=== PATIENT | female | born 1955 | race Caucasian/White ===

== ENCOUNTER 2016-11-07 09:34 | Emergency (ER) | payer BC ==
[2016-11-07 09:51] VITALS: BP 155/98
[2016-11-07] MEDS ORDERED: Sodium Chloride 0.9% 10 ML Syringe FLUSH PRN (10:57)
[2016-11-07] MEDS ORDERED: diphenhydrAMINE 50 MG/ML SDV IVPUSH ONE (11:00)
[2016-11-07] MEDS ORDERED: Metoclopramide 10 MG/2 ML SDV IVPUSH ONE (11:00)
--- NOTE | 2016-11-07 11:23 | CT ---
Head CT Technique: Multiple axial sections through the brain were obtained. Intravenous contrast was not utilized. Comparison: Previous head CT exam of 08/08/15. Findings: Ventricles along with basal cisterns and sulci over convexities are within normal limits for the patient's age. No abnormal parenchymal densities are seen. No evidence of intracranial hemorrhage. No midline shift or mass effect is seen. Bone window settings were reviewed which shows no discrete calvarial abnormality. Visualized sinuses are clear. Impression: 1. No acute intracranial abnormality is identified on noncontrast head CT study. Diagnostic code #1
[2016-11-07] MEDS ORDERED: Ketorolac 30 MG/ML SDV IVPUSH ONE (11:26)
--- NOTE | 2016-11-07 11:28 | CT ---
CT cervical spine Technique: Multiple axial sections were obtained from above C1 inferiorly to the mid T2 level. Reconstructed sagittal and coronal images were reviewed. Comparison: No previous CT cervical spine exam, previous MRI cervical spine study of 04/03/12. Findings: Mastoid sinuses and middle ear cavities appear clear as seen. Posterior skull base is intact. Fusion is identified at C5-C6 and C6-C7 with anterior plate and screws being seen. Mild disc space narrowing noted at C4-C5 with anterior osteophytes. Mild disc space narrowing is noted at C7-T1. Mild degenerative change is seen within the apophyseal joints most prominent at C7-T1 on the left side. Minimal spondylolisthesis is noted at C7-T1 which is felt to be due to degenerative apophyseal change. Ligamentum nuchal calcification is seen. Vertebral bodies and posterior arches are intact. No fracture is seen. No bony central or bony neural foraminal stenosis is seen. Impression: 1. Previous surgery. Degenerative change as noted above. No acute fracture or other acute abnormality is appreciated. Diagnostic code #2
[2016-11-07] MEDS ORDERED: Haloperidol Lactate 5 MG/ML SDV IVPUSH ONE (12:13)
--- NOTE | 2016-11-07 12:56 | EDM.PDOC ---
ED HPI GENERAL MEDICAL PROBLEM - General Chief Complaint: Lower Extremity Injury/Pain Stated Complaint: L HIP PAIN/HEAD PAIN Time Seen by Provider: 11/07/16 10:45 Source of Information: Reports: Patient History Limitations: Reports: No Limitations - History of Present Illness INITIAL COMMENTS - FREE TEXT/NARRATIVE: 61 year old female presents for evaluation and treatment of a headache, left leg pain and dizziness. Reports the headache started 4 days ago. Reports the headache is a 10/10 and is located across the front of her head. Patient reports one week ago she was getting up to go to the bathroom in her camper. She fell backwards and hit her head on the ground. Unsure exactly how she fell. Unsure if she lost consciousness. Reports associated neck pain, dizziness, nausea and photophobia. No loss of consciousness since the accident. No treatments prior to arrival. Patient has a history of migraines. Unsure if this is similar past migraines. Previously on imitrex for migraines but did not get much relief. Patient reports when she gets migraines this severe she often requires Dilaudid for pain control. Patient also reports pain to the anterior lateral proximal thigh. Difficulty walking due to pain. No numbness or tingling. Patient initially reported the pain began within the last week. Review of her chart shows she has had problems with back pain in the past. With further questioning, Patient reports the leg pain has been present for some time. She is concerned she has sciatica. Duration: Day(s): (4) Location: Reports: Head, Lower Extremity, Left Left Hip Pain Score (Numeric/FACES): 9 - Related Data Allergies Allergy/AdvReac Type Severity Reaction Status Date / Time No Known Allergies Allergy Verified 11/07/16 09:46 Home Meds: Home Meds Lisinopril 10 mg PO DAILY 12/23/13 [History] Sertraline [Zoloft] 50 mg PO DAILY 12/23/13 [History] Estrogen,Xiomara/Me-Testosterone [Estrogen-Methyltestosterone Tb] 1 ea PO DAILY [History] Past Medical History Musculoskeletal History: Reports: Other (See Below) Other Musculoskeletal History: neck surgery Neurological History: Reports: Migraines Psychiatric History: Reports: Anxiety, Depression - Infectious Disease History Infectious Disease History: Reports: None - Past Surgical History GI Surgical History: Reports: Appendectomy Female Surgical History: Reports: Hysterectomy Musculoskeletal Surgical History: Reports: Shoulder Surgery Social & Family History - Tobacco Use Smoking Status *Q: Never Smoker Second Hand Smoke Exposure: No - Caffeine Use Caffeine Use: Reports: Coffee - Recreational Drug Use Recreational Drug Use: No Review of Systems - Review of Systems Review Of Systems: See Below Constitutional: Reports: Other (reports photophobia) Ears: Reports: Dizziness GI/Abdominal: Reports: Nausea. Denies: Vomiting Genitourinary: Reports: No Symptoms. Denies: Dysuria Musculoskeletal: Reports: Neck Pain, Leg Pain (left proximal lateral thigh) Neurological: Reports: Dizziness, Headache, Difficulty Walking. Denies: Numbness, Tingling ED EXAM, GENERAL - Physical Exam Exam: See Below Exam Limited By: No Limitations General Appearance: WD/WN, Moderate Distress (patient appears to be dramatizing symptoms) Eye Exam: Bilateral Eye: EOMI, Normal Inspection, PERRL Ears: Normal External Exam Nose: Normal Inspection Throat/Mouth: Normal Inspection, Normal Lips, Normal Gums, Normal Oropharynx, No Airway Compromise Head: Atraumatic, Normocephalic Neck: Normal Inspection, Supple Respiratory/Chest: No Respiratory Distress, Lungs Clear, Normal Breath Sounds Cardiovascular: Normal Peripheral Pulses, Regular Rate, Rhythm, No Murmur Peripheral Pulses: 2+: Radial (L), Radial (R), Posterior Tibial (L), Posterior Tibial (R), Dorsalis Pedis (L), Dorsalis Pedis (R) Back Exam: Normal Inspection Extremities: Normal Inspection, Normal Capillary Refill Neurological: Alert, Oriented, Normal Cognition, Other (negative straight leg raise bilterally) Psychiatric: Normal Affect, Normal Mood Skin Exam: Warm, Dry, Normal Color. No: Ecchymosis, Erythema, Wound/Incision Course - Vital Signs Last Recorded V/S: Last Vital Signs Temp 36.2 C 11/07/16 09:50 Pulse 103 H 11/07/16 09:50 Resp 12 11/07/16 09:50 BP 155/98 H 11/07/16 09:50 Pulse Ox 100 11/07/16 09:50 - Orders/Labs/Meds Labs: Laboratory Tests 11/07/16 11/07/16 11/07/16 Range/Units 11:25 11:35 11:35 WBC 6.92 (3.98-10.04) K/mm3 RBC 4.49 (3.98-5.22) M/mm3 Hgb 14.8 (11.2-15.7) gm/L Hct 44.8 (34.1-44.9) % MCV 99.8 H (79.4-94.8) fl MCH 33.0 H (25.6-32.2) pg MCHC 33.0 (32.2-35.5) g/dl RDW Std Deviation 44.3 (36.4-46.3) fL Plt Count 264 (182-369) K/mm3 MPV 8.8 L (9.4-12.3) fl Neut % (Auto) 71.4 H (34.0-71.1) % Lymph % (Auto) 18.2 L (19.3-51.7) % [place] % (Auto) 6.6 (4.7-12.5) % Eos % (Auto) 3.0 (0.7-5.8) Baso % (Auto) 0.7 (0.1-1.2) % Neut # (Auto) 4.93 (1.56-6.13) K/mm3 Lymph # (Auto) 1.26 (1.18-3.74) K/mm3 [place] # (Auto) 0.46 H (0.24-0.36) K/mm3 Eos # (Auto) 0.21 (0.04-0.36) K/mm3 Baso # (Auto) 0.05 (0.01-0.08) K/mm3 Sodium 138 (136-145) mEq/L Potassium 4.4 (3.5-5.1) mEq/L Chloride 101 (98-107) mEq/L Carbon Dioxide 30 (21-32) mEq/L Anion Gap 11.4 (5-15) BUN 15 (7-18) mg/dL Creatinine 1.1 H (0.55-1.02) mg/dL Est Cr Clr Drug Dosing 51.55 mL/min Estimated GFR (MDRD) 51 (>60) mL/min BUN/Creatinine Ratio 13.6 L (14-18) Glucose 105 (74-106) mg/dL Calcium 9.5 (8.5-10.1) mg/dL Total Bilirubin 0.5 (0.2-1.0) mg/dL AST 21 (15-37) U/L ALT 35 (14-59) U/L Alkaline Phosphatase 92 (46-116) U/L Total Protein 8.3 H (6.4-8.2) g/dl Albumin 4.3 (3.4-5.0) g/dl Globulin 4.0 gm/dL Albumin/Globulin Ratio 1.1 (1-2) Urine Color Yellow (Yellow) Urine Appearance Slt cloudy H (Clear) Urine pH 6.0 (5.0-8.0) Ur Specific [place] > or = 1.030 (1.005-1.030) Urine Protein Negative (Negative) Urine Glucose (UA) Negative (Negative) Urine Ketones Negative (Negative) Urine Occult Blood Trace-intact H (Negative) Urine Nitrite Negative (Negative) Urine Bilirubin Negative (Negative) Urine Urobilinogen 0.2 (0.2-1.0) Ur Leukocyte Esterase 1+ H (Negative) Urine RBC 5-10 H (0-5) /hpf Urine WBC 5-10 H (0-5) /hpf Ur Epithelial Cells 20-30 H (0-5) /hpf Ur Squamous Epith Cells 20-30 H (0-5) /hpf Urine Bacteria Moderate H (FEW) /hpf Urine Mucus Few (FEW) /hpf Meds: Medications Discontinued Medications Generic Name Dose Route Start Last Admin Trade Name Monserrat PRN Reason Stop Dose Admin Dexamethasone 4 mg 11/07/16 13:53 11/07/16 14:29 Dexamethasone IVPUSH 11/07/16 13:54 4 mg ONETIME ONE Administration Dexamethasone Confirm 11/07/16 14:25 Dexamethasone Administered 11/07/16 14:26 Dose 4 mg .ROUTE .STK-MED ONE Diphenhydramine HCl 50 mg 11/07/16 11:00 11/07/16 11:33 Benadryl IVPUSH 11/07/16 11:01 50 mg ONETIME ONE Administration Haloperidol Lactate 5 mg 11/07/16 12:13 11/07/16 12:22 Haldol IVPUSH 11/07/16 12:14 5 mg ONETIME ONE Administration Ketorolac Tromethamine 30 mg 11/07/16 11:26 11/07/16 11:37 Toradol IVPUSH 11/07/16 11:27 30 mg ONETIME ONE Administration Metoclopramide HCl 10 mg 11/07/16 11:00 11/07/16 11:29 Reglan IVPUSH 11/07/16 11:01 10 mg ONETIME ONE Administration Sodium Chloride 10 ml 11/07/16 10:57 11/07/16 11:28 Saline Flush FLUSH 10 ml ASDIRECTED PRN Administration Keep Vein Open - Radiology Interpretation Free Text/Narrative:: CT of the head without contrast impression per Dr. Ludwig 1. No acute intracranial abnormality is identified on noncontrast head CT. Cervical spine CT without contrast impression per Dr. Vail 1. Previous surgery. Degenerative changes noted. No acute fracture or other acute abnormalities appreciated. left hip with pelvis impression per Dr. Ludwig: 1. mild joint space narrowing within the both hips and right sacroiliac joint. 2. Nothing acute is identified on AP pelvis or on two view left hip exam. left femur xray shows no acute fracture or dislocations. - Re-Assessments/Exams Free Text/Narrative Re-Assessment/Exam: 11/07/16 11:46 I felt that the patient was dramatizing her symptoms. She asked for Dilaudid for pain. I am suspicious for drug seeking activity. Patient was searched on the [place] prescription drug registry. She has received 15 different prescriptions for controlled substances from 3 different prescribers within the last year for controlled substances. Most recently she received [place] 5-325 written on 08-28-16 #60. I contacted [facility] and was able to speak with the patient's primary care provider, Jocelyn Woods. She informed me that the patient came to her on [place] for low back pain. She has been physical therapy and has had an unremarkable MRI. Jocelyn states she will no longer prescribe her [place] and she was instructed to get into pain management. It does not sound that she has done this. Jocelyn advised against giving her narcotic pain medication. 11/07/16 12:[address] returned negative, toradol given for pain. Patient reports pain is unchanged. Haldol ordered following headache protocol. 11/07/16 14:19 Labs returned wbc is 6.92, hgb is 14.8 and plts are 264 sodium is 138, potassium is 4.4 and chloride is 101, anion gap is 11.4. gluclose is 105. creatinine is 1.1 Pain now a 11/06. Dexamethasone ordered for pain, following headache protocol. 11/07/16 15:28 At this point the patient feels greatly improved. We will discharge her home. Discharge instructions as documented. UA returned with trace blood, moderae bacteria and 1+ leuks. Patient has no urinary symptoms. Urine sent for culture to confirm. No treatment to be started today. Departure - Departure Time of Disposition: 15:29 Disposition: Home, Self-Care 01 Condition: Good Clinical Impression: Migraine - Discharge Information Instructions: Migraine Headache, [id number] Referrals: Jocelyn Woods PA-C [Primary Care Provider] - Forms: ED Department Discharge Additional Instructions: Go home and rest in a dark quiet room. [id number] Tylenol or Motrin as needed for pain relief. Follow-up with your primary care provider this week or next week if your symptoms do not improve. may use ice or moist heat to the sore areas for additional pain relief. May also try topical products such as icy hot or BenGay for additional pain relief. Please return to the ER if your symptoms change or worsen.
[2016-11-07] MEDS ORDERED: Dexamethasone 4 MG/ML SDV IVPUSH ONE (13:53)
[2016-11-07] MEDS ORDERED: Dexamethasone 4 MG/ML SDV ONE (14:25)
--- NOTE | 2016-11-07 14:29 | CR ---
Pelvis and left hip: AP view of the pelvis was obtained as well as AP and frog-leg lateral views of the left hip. Mild joint space narrowing seen within the both hips. Right sacroiliac joint is mildly narrowed. Left sacroiliac joint is unremarkable. No fracture or other abnormality is seen. Impression: 1. Mild joint space narrowing within the both hips and right sacroiliac joint. 2. Nothing acute is identified on AP pelvis or on two-view left hip exam. Diagnostic code #2
--- NOTE | 2016-11-08 09:41 | CR ---
Left femur: AP and lateral views of the left femur were obtained. Comparison: No previous femur exam. Mild joint space narrowing is seen superiorly within the left hip as well as joint space narrowing medially within the left knee. No fracture or other bony abnormality is seen. Impression: 1. Incidental degenerative change. 2. Nothing acute is seen on left femur study. Diagnostic code #1
== END 2016-11-07 15:35 | disposition home or self-care (01) ==
LOC: JD.ED 09:34 → JD.MS 13:29 → UNDOADMIN 13:29 → JD.ED 15:35
DX: G43.909 Migraine, unspecified, not intractable, without status migrainosus (principal); F41.9 Anxiety disorder, unspecified; F32.9 Major depressive disorder, single episode, unspecified; Z90.49 Acquired absence of other specified parts of digestive tract; Z90.710 Acquired absence of both cervix and uterus
CPT/HCPCS: 36415; 70450; 72125; 73502; 73552; 80053; 81001; 85025; 87086; 96374; 96375; 99285; J1100; J1200; J1630; J1885; J2765; J7050; 99283

== ENCOUNTER 2017-12-20 05:57 | Emergency (ER) | payer BC ==
[2017-12-20] MEDS ORDERED: Acetaminophen/HYDROcodone 325-5 MG Tab PO ONE (06:24)
[2017-12-20] MEDS ORDERED: Orphenadrine 100 MG Tab.ER PO STA (06:24)
--- NOTE | 2017-12-20 06:37 | EDM.PDOC ---
Addendum entered and electronically signed by Isauro Walker MD 12/20/17 11:57 : The patient's had concerns over the prescription. The patient has a history of addiction issues. This was years ago but she has pain now and tramadol does not help. Her will monitor the meds. Original Note: <Isauro Walker - Last Filed: 12/20/17 11:16> ED HPI GENERAL MEDICAL PROBLEM - General Chief Complaint: Chest Pain Stated Complaint: CHEST PAIN Time Seen by Provider: 12/20/17 06:10 - Related Data Allergies Allergy/AdvReac Type Severity Reaction Status Date / Time No Known Allergies Allergy Verified 12/20/17 06:01 Home Meds: Home Meds Sertraline [Zoloft] 100 mg PO DAILY 12/23/13 [History] Estrogen,Xiomara/Me-Testosterone [Estrogen-Methyltestosterone Tb] 1 ea PO DAILY [History] Mv,Iron,Min/Folic Acid/Biotin [Hair, Skin and Nails Softgel] 2 cap PO DAILY [History] Naproxen Sodium [Aleve] 2 tab PO Q8H PRN 12/20/17 [History] atorvaSTATin [Lipitor] 20 mg PO DAILY 12/20/17 [History] oxyCODONE HCl/Acetaminophen [Percocet 5-325 mg Tablet] 1 - 2 each PO Q6HR PRN # 20 tablet 12/20/17 [Rx] Course - Vital Signs Last Recorded V/S: Last Vital Signs Temp 36.6 C 12/20/17 12:03 Pulse 95 12/20/17 12:03 Resp 22 H 12/20/17 12:03 BP 125/95 H 12/20/17 12:03 Pulse Ox 98 12/20/17 12:03 - Orders/Labs/Meds Orders: Active Orders 24 hr Category Date Time Status EKG Documentation Completion [RC] STAT Care 12/20/17 06:23 Active Labs: Laboratory Tests 12/20/17 12/20/17 12/20/17 Range/Units 06:09 06:09 06:09 WBC 5.84 (3.98-10.04) K/mm3 RBC 4.37 (3.98-5.22) M/mm3 Hgb 14.5 (11.2-15.7) gm/L Hct 44.0 (34.1-44.9) % MCV 100.7 H (79.4-94.8) fl MCH 33.2 H (25.6-32.2) pg MCHC 33.0 (32.2-35.5) g/dl RDW Std Deviation 42.4 (36.4-46.3) fL Plt Count 296 (182-369) K/mm3 MPV 9.2 L (9.4-12.3) fl Neutrophils % (Manual) 73 H (40-60) % Band Neutrophils % 0 (0-10) % Lymphocytes % (Manual) 18 L (20-40) % Atypical Lymphs % 0 % Monocytes % (Manual) 7 (2-10) % Eosinophils % (Manual) 2 (0.7-5.8) % Basophils % (Manual) 0 L (0.1-1.2) Platelet Estimate Adequate RBC Morph Comment Normal D-Dimer, Quantitative < 0.19 L (0.19-0.50) mg/L Sodium 137 (136-145) mEq/L Potassium 4.2 (3.5-5.1) mEq/L Chloride 102 (98-107) mEq/L Carbon Dioxide 25 (21-32) mEq/L Anion Gap 14.2 (5-15) BUN 11 (7-18) mg/dL Creatinine 1.1 H (0.55-1.02) mg/dL Est Cr Clr Drug Dosing 50.91 mL/min Estimated GFR (MDRD) 51 (>60) mL/min BUN/Creatinine Ratio 10.0 L (14-18) Glucose 92 (74-106) mg/dL Calcium 9.3 (8.5-10.1) mg/dL Total Bilirubin 0.8 (0.2-1.0) mg/dL AST 18 (15-37) U/L ALT 24 (14-59) U/L Alkaline Phosphatase 82 (46-116) U/L Troponin I < 0.017 (0.00-0.056) ng/mL Total Protein 7.6 (6.4-8.2) g/dl Albumin 4.3 (3.4-5.0) g/dl Globulin 3.3 gm/dL Albumin/Globulin Ratio 1.3 (1-2) Lipase (73-393) U/L 12/20/17 12/20/17 Range/Units 06:09 10:45 WBC (3.98-10.04) K/mm3 RBC (3.98-5.22) M/mm3 Hgb (11.2-15.7) gm/L Hct (34.1-44.9) % MCV (79.4-94.8) fl MCH (25.6-32.2) pg MCHC (32.2-35.5) g/dl RDW Std Deviation (36.4-46.3) fL Plt Count (182-369) K/mm3 MPV (9.4-12.3) fl Neutrophils % (Manual) (40-60) % Band Neutrophils % (0-10) % Lymphocytes % (Manual) (20-40) % Atypical Lymphs % % Monocytes % (Manual) (2-10) % Eosinophils % (Manual) (0.7-5.8) % Basophils % (Manual) (0.1-1.2) Platelet Estimate RBC Morph Comment D-Dimer, Quantitative (0.19-0.50) mg/L Sodium (136-145) mEq/L Potassium (3.5-5.1) mEq/L Chloride (98-107) mEq/L Carbon Dioxide (21-32) mEq/L Anion Gap (5-15) BUN (7-18) mg/dL Creatinine (0.55-1.02) mg/dL Est Cr Clr Drug Dosing mL/min Estimated GFR (MDRD) (>60) mL/min BUN/Creatinine Ratio (14-18) Glucose (74-106) mg/dL Calcium (8.5-10.1) mg/dL Total Bilirubin (0.2-1.0) mg/dL AST (15-37) U/L ALT (14-59) U/L Alkaline Phosphatase (46-116) U/L Troponin I < 0.017 (0.00-0.056) ng/mL Total Protein (6.4-8.2) g/dl Albumin (3.4-5.0) g/dl Globulin gm/dL Albumin/Globulin Ratio (1-2) Lipase 137 (73-393) U/L Meds: Medications Discontinued Medications Generic Name Dose Route Start Last Admin Trade Name Freq PRN Reason Stop Dose Admin Hydrocodone Bitart/Acetaminophen 2 tab 12/20/17 06:24 12/20/17 06:31 [place] 325-5 Mg PO 12/20/17 06:25 2 tab ONETIME ONE Administration Diatrizoate Meglum/Diatrizoate Sod 120 ml 12/20/17 08:17 12/20/17 09:23 Gastrografin 37% PO 12/20/17 08:18 90 ml ONETIME ONE Administration Hydromorphone HCl 1 mg 12/20/17 07:51 12/20/17 07:59 Dilaudid IVPUSH 12/20/17 07:52 1 mg ONETIME ONE Administration Hydromorphone HCl 0.5 mg 12/20/17 08:56 12/20/17 09:07 Dilaudid IVPUSH 12/20/17 08:57 0.5 mg ONETIME ONE Administration Hydromorphone HCl 0.5 mg 12/20/17 11:21 12/20/17 11:28 Dilaudid IVPUSH 12/20/17 11:22 0.5 mg ONETIME ONE Administration Sodium Chloride 1,000 mls @ 150 mls/hr 12/20/17 09:00 12/20/17 09:06 Normal Saline IV 150 mls/hr ASDIRECTED MARVA Administration Iopamidol 100 ml 12/20/17 09:12 12/20/17 09:23 Isovue-300 (61%) IVPUSH 12/20/17 09:13 100 ml ONETIME ONE Administration Ondansetron HCl 4 mg 12/20/17 07:51 12/20/17 07:57 Zofran IVPUSH 12/20/17 07:52 4 mg ONETIME ONE Administration Orphenadrine Citrate 100 mg 12/20/17 06:24 12/20/17 06:31 Norflex PO 12/20/17 06:25 100 mg ONETIME STA Administration Sodium Chloride 10 ml 12/20/17 08:17 12/20/17 09:23 Saline Flush FLUSH 10 ml ONETIME PRN Administration IV FLUSH - Re-Assessments/Exams Free Text/Narrative Re-Assessment/Exam: 12/20/17 11:[address] Brown. Her CBC looks good. Her D-dimer was negative. Her creatinine was slightly elevated at 1.1. Her troponin was negative. Her lipase was normal. She had more pain so I ordered dilaudid 1mg IV. I have ordered a CT of her abdomen and pelvis. The CT shows nothing acute. She does have multiple low density splenic lesions are seen which appear to be stable which become isodense to the spleen on delayed images. The patient had CTs in the past that showed these lesions. In [place] a few years ago they did attempt a biopsy. They could not get a good sample. She was referred to a general surgeon and he was going to order a PET scan but her insurance would not cover it. She did not follow up and now she is having more pain. I will have her follow up with Dr Gautam. 12/20/17 11:21 I have also ordered a repeat troponin but I feel the pain is coming more from the left upper quadrant. Departure - Departure Time of Disposition: 11:35 Disposition: Home, Self-Care 01 Condition: Good Clinical Impression: Abdominal pain of unknown cause, Lesion of spleen Chest pain Qualifiers: Chest pain type: unspecified Qualified Code(s): R07.9 - Chest pain, unspecified - Discharge Information *PRESCRIPTION DRUG MONITORING PROGRAM REVIEWED*: No *COPY OF PRESCRIPTION DRUG MONITORING REPORT IN PATIENT RANDAL: No Prescriptions: oxyCODONE HCl/Acetaminophen [Percocet 5-325 mg Tablet] 1 - 2 each PO Q6HR PRN # 20 tablet PRN Reason: Pain Instructions: Abdominal Pain, Adult, [id number], Nonspecific Chest Pain, Easy -to-Read Referrals: Josi Ortiz MD [Physician] - 12/26/17 3:15 pm Matthew Martinez MD [Primary Care Provider] - Forms: ED Department Discharge Additional Instructions: Take the percocet 1 to 2 pills every 6 hours as needed for pain. Follow up with Dr Ortiz at the [facility] on Sunday the at 3:15. Please come early to register. Please return if you are worse. - My Orders Last 24 Hours: My Active Orders 12/20/17 06:23 EKG Documentation Completion [RC] STAT - Assessment/Plan Last 24 Hours: My Active Orders 12/20/17 06:23 EKG Documentation Completion [RC] STAT <Matti Brown - Last Filed: 12/21/17 01:15> ED HPI GENERAL MEDICAL PROBLEM - General Source of Information: Reports: Patient, Family () History Limitations: Reports: No Limitations - History of Present Illness INITIAL COMMENTS - FREE TEXT/NARRATIVE: The patient states that she developed pain to her left breast yesterday morning , 12/19/2017 (around 24 hours ago). The pain is sharp in character. It does not radiate. It is made worse with breathing, but not with body position or arm movement. She has had nausea and emesis. She reports dyspnea. She reports diaphoresis. She states that she feels anxious, and dizzy. She also reports that her left hand is somewhat tingly, but denies discomfort going down her arm, per se. The patient states that she has taken Aleve, without relief. The patient states that she has had similar pain, although not as severe, 4 or more times since October 2016. No prior medical evaluation. The patient's PCP is Dr. Martinez. Left Chest Pain Score (Numeric/FACES): 10 Past Medical History HEENT History: Reports: Impaired Vision Other HEENT History: Wears glasses Cardiovascular History: Reports: High Cholesterol (untreated), Hypertension ( untreated) [employer] History: Reports: Psychiatric History: Reports: Anxiety, Depression - Past Surgical History HEENT Surgical History: Reports: Oral Surgery (wisdom teeth extraction) GI Surgical History: Reports: Appendectomy Female Surgical History: Reports: Hysterectomy, Salpingo-Oophorectomy Neurological Surgical History: Reports: C-Spine (ACDF) Musculoskeletal Surgical History: Reports: Shoulder Surgery (right open rotator cuff repair) Social & Family History - Tobacco Use Smoking Status *Q: Former Smoker Years of Tobacco use: 33 Packs/Tins Daily: 1 Month/Year Tobacco Last Used: Quit 2008 - Caffeine Use Caffeine Use: Reports: Coffee - Alcohol Use Alcohol Use History: Yes Days Per Week of Alcohol Use: 2 Number of Drinks Per Day: 2 Total Drinks Per Week: 4 Alcohol Use Frequency: Socially - Recreational Drug Use Recreational Drug Use: No - Living Situation & Occupation Living situation: Reports: , with Spouse Occupation: Employed ([employer]) ED ROS GENERAL - Review of Systems Review Of Systems: ROS reveals no pertinent complaints other than HPI. ED EXAM, GENERAL - Physical Exam Exam: See Below Exam Limited By: No Limitations General Appearance: Alert, WD/WN, Anxious, Mild Distress (appears uncomfortable) Eye Exam: Bilateral Eye: EOMI, Normal Inspection Ears: Normal External Exam, Hearing Grossly Normal Nose: Normal Inspection, No Blood Throat/Mouth: Normal Inspection, Normal Lips, Normal Voice, No Airway Compromise Head: Atraumatic, Normocephalic Neck: Normal Inspection, Full Range of Motion Respiratory/Chest: No Respiratory Distress, Lungs Clear, Normal Breath Sounds, No Accessory Muscle Use, Other (Reproducible tenderness to palpation of the left breast). No: Decreased Breath Sounds, Crackles, Rhonchi, Wheezing, Pleural Rub, Prolonged Expiration Cardiovascular: Normal Peripheral Pulses, Regular Rate, Rhythm, No Edema, No Gallop, No JVD, No Murmur, No Rub Peripheral Pulses: 4+: Radial (L), Radial (R) GI/Abdominal: Normal Bowel Sounds, Soft, No Organomegaly, No Distention, No Abnormal Bruit, No Mass, Tender (Generalized, non-focal, but palpation of the abdomen increases the left chest pain) (Female) Exam: Deferred Rectal (Female) Exam: Deferred Back Exam: Normal Inspection, Full Range of Motion Extremities: Normal Inspection, Normal Range of Motion, No Pedal Edema, Normal Capillary Refill Neurological: Alert, Oriented, Normal Cognition, No Motor/Sensory Deficits Psychiatric: Anxious Skin Exam: Warm, Dry, Intact, Normal Color, No Rash EKG INTERPRETATION EKG Date: 12/20/17 Time: 06:05 Rhythm: NSR Rate (Beats/Min): 89 [place]: Normal P-Wave: Present QRS: Normal ST-T: Normal QT: Normal Comparison: No Change (10/03/2015) Course - Orders/Labs/Meds Labs: Laboratory Tests 12/20/17 12/20/17 12/20/17 Range/Units 06:09 06:09 06:09 WBC 5.84 (3.98-10.04) K/mm3 RBC 4.37 (3.98-5.22) M/mm3 Hgb 14.5 (11.2-15.7) gm/L Hct 44.0 (34.1-44.9) % MCV 100.7 H (79.4-94.8) fl MCH 33.2 H (25.6-32.2) pg MCHC 33.0 (32.2-35.5) g/dl RDW Std Deviation 42.4 (36.4-46.3) fL Plt Count 296 (182-369) K/mm3 MPV 9.2 L (9.4-12.3) fl Neutrophils % (Manual) 73 H (40-60) % Band Neutrophils % 0 (0-10) % Lymphocytes % (Manual) 18 L (20-40) % Atypical Lymphs % 0 % Monocytes % (Manual) 7 (2-10) % Eosinophils % (Manual) 2 (0.7-5.8) % Basophils % (Manual) 0 L (0.1-1.2) Platelet Estimate Adequate RBC Morph Comment Normal D-Dimer, Quantitative < 0.19 L (0.19-0.50) mg/L Sodium 137 (136-145) mEq/L Potassium 4.2 (3.5-5.1) mEq/L Chloride 102 (98-107) mEq/L Carbon Dioxide 25 (21-32) mEq/L Anion Gap 14.2 (5-15) BUN 11 (7-18) mg/dL Creatinine 1.1 H (0.55-1.02) mg/dL Est Cr Clr Drug Dosing 50.91 mL/min Estimated GFR (MDRD) 51 (>60) mL/min BUN/Creatinine Ratio 10.0 L (14-18) Glucose 92 (74-106) mg/dL Calcium 9.3 (8.5-10.1) mg/dL Total Bilirubin 0.8 (0.2-1.0) mg/dL AST 18 (15-37) U/L ALT 24 (14-59) U/L Alkaline Phosphatase 82 (46-116) U/L Troponin I < 0.017 (0.00-0.056) ng/mL Total Protein 7.6 (6.4-8.2) g/dl Albumin 4.3 (3.4-5.0) g/dl Globulin 3.3 gm/dL Albumin/Globulin Ratio 1.3 (1-2) Lipase (73-393) U/L 12/20/17 12/20/17 Range/Units 06:09 10:45 WBC (3.98-10.04) K/mm3 RBC (3.98-5.22) M/mm3 Hgb (11.2-15.7) gm/L Hct (34.1-44.9) % MCV (79.4-94.8) fl MCH (25.6-32.2) pg MCHC (32.2-35.5) g/dl RDW Std Deviation (36.4-46.3) fL Plt Count (182-369) K/mm3 MPV (9.4-12.3) fl Neutrophils % (Manual) (40-60) % Band Neutrophils % (0-10) % Lymphocytes % (Manual) (20-40) % Atypical Lymphs % % Monocytes % (Manual) (2-10) % Eosinophils % (Manual) (0.7-5.8) % Basophils % (Manual) (0.1-1.2) Platelet Estimate RBC Morph Comment D-Dimer, Quantitative (0.19-0.50) mg/L Sodium (136-145) mEq/L Potassium (3.5-5.1) mEq/L Chloride (98-107) mEq/L Carbon Dioxide (21-32) mEq/L Anion Gap (5-15) BUN (7-18) mg/dL Creatinine (0.55-1.02) mg/dL Est Cr Clr Drug Dosing mL/min Estimated GFR (MDRD) (>60) mL/min BUN/Creatinine Ratio (14-18) Glucose (74-106) mg/dL Calcium (8.5-10.1) mg/dL Total Bilirubin (0.2-1.0) mg/dL AST (15-37) U/L ALT (14-59) U/L Alkaline Phosphatase (46-116) U/L Troponin I < 0.017 (0.00-0.056) ng/mL Total Protein (6.4-8.2) g/dl Albumin (3.4-5.0) g/dl Globulin gm/dL Albumin/Globulin Ratio (1-2) Lipase 137 (73-393) U/L - Re-Assessments/Exams Free Text/Narrative Re-Assessment/Exam: 12/20/17 06:41 The patient's pain is reproducible with palpation of the left side of the chest , indicating a musculoskeletal etiology. Her ECG is unremarkable. I have ordered a chest x-ray and some blood work, to make sure that no other concomitant problem, such as a pneumothorax, pulmonary embolus, or pancreatitis is present. In the meantime, I have ordered 2 tablets of [place] and a tablet of Norflex. 12/20/17 06:46 2-view chest radiograph reviewed. Cardiac silhouette is within normal limits. The pulmonary vascular congestion. No pleural effusions. No focal infiltrate. No pneumothorax. Lower cervical/upper thoracic fusion hardware incidentally noted. Mild scoliosis incidentally noted. Formal read per the Radiologist pending. 12/20/17 07:[address] Walker, and care of the patient turned over to him at this time, for change of shift.
[2017-12-20] MEDS ORDERED: HYDROmorphone 1 MG/ML Syringe IVPUSH ONE (07:51)
[2017-12-20] MEDS ORDERED: Ondansetron 4 MG/2 ML SDV IVPUSH ONE (07:51)
[2017-12-20] MEDS ORDERED: Diatrizoate Meglumine/Diatrizoate Sodium 37% 120 ML Bottle PO ONE (08:17)
[2017-12-20] MEDS ORDERED: Iopamidol 612 MG/ML 150 ML Bottle IVPUSH ONE (08:17)
[2017-12-20] MEDS ORDERED: Sodium Chloride 0.9% 10 ML Syringe FLUSH PRN (08:17)
[2017-12-20] MEDS ORDERED: HYDROmorphone 0.5 MG/0.5 ML SYRINGE IVPUSH ONE ×2 (08:56→11:21)
[2017-12-20] MEDS ORDERED: Sodium Chloride 0.9% 1,000 ML IV SCH (09:00)
[2017-12-20] MEDS ORDERED: Iopamidol 612 MG/ML 100 ML Bottle IVPUSH ONE (09:12)
--- NOTE | 2017-12-20 10:21 | CT ---
CT abdomen and pelvis Technique: Multiple axial sections were obtained from above the dome of the diaphragm inferiorly through the pubic symphysis. Intravenous and oral contrast was utilized. Comparison: Previous CT abdomen and pelvis study of 10/03/15. Findings: Visualized lung bases shows nothing acute. Liver shows no discrete abnormality. Small liver lesion that was seen on prior CT study is not appreciated on current exam. Multiple low density splenic lesions are seen which appear to be stable which become isodense to the spleen on delayed images. Adrenal glands show no nodule. Kidneys show symmetric contrast enhancement. Small low density lesion measuring 9 mm is seen. Several very small cortical lesion seen within the upper pole of the right kidney compatible with additional cysts. Gallbladder contains no calcified gallstones. Pancreas is normal. Aorta shows no aneurysmal dilatation with atherosclerotic change being seen. No retroperitoneal adenopathy or mesenteric abnormalities are seen. Appendix is not visualized. No free fluid or inflammatory change is seen. Bone window settings appear within normal limits for the patient's age. Incidental note of small fat-containing umbilical hernia. Mild increased stool seen within the colon. Impression: 1. Findings which are felt to be incidental as described above. Nothing acute is seen. Diagnostic code #3
[2017-12-20 12:04] VITALS: BP 125/95
--- NOTE | 2017-12-20 12:42 | CR ---
Chest: Two views of the chest were obtained. Comparison: Prior chest x-ray of 10/03/15. Heart size is normal. Mild tortuosity of the thoracic aorta is seen. Prior lower cervical spine surgery is seen. Lungs show no acute parenchymal change. Slight degenerative endplate spurring is noted within the spine. Impression: 1. Nothing acute is seen on two-view chest x-ray. Diagnostic code #2
== END 2017-12-20 12:05 | disposition home or self-care (01) ==
LOC: JD.ED 05:57
DX: D73.89 Other diseases of spleen (principal); R07.9 Chest pain, unspecified; I10 Essential (primary) hypertension; E78.00 Pure hypercholesterolemia, unspecified; F41.9 Anxiety disorder, unspecified; F32.9 Major depressive disorder, single episode, unspecified; Z79.899 Other long term (current) drug therapy; Z87.891 Personal history of nicotine dependence
CPT/HCPCS: 36415; 71046; 74177; 80053; 83690; 84484; 85007; 85027; 85379; 93005; 96361; 96374; 96375; 96376; 99285; A9270; J1170; J2405; J7040; J7050; Q9963; Q9967; 93010; 99284-25

== ENCOUNTER 2019-05-27 10:25 | Emergency (ER) | payer BC ==
[2019-05-27] MEDS ORDERED: Lactated Ringers 1,000 ML IV ONE ×2 (11:13→14:17)
[2019-05-27] MEDS ORDERED: Ondansetron 4 MG/2 ML SDV IVPUSH ONE (11:13)
--- NOTE | 2019-05-27 11:26 | EDM.PDOC ---
ED HPI GENERAL MEDICAL PROBLEM - General Chief Complaint: Abdominal Pain Stated Complaint: ABDOMINAL PAIN/CONSTIPATED X5DAYS Time Seen by Provider: 05/27/19 11:00 - History of Present Illness INITIAL COMMENTS - FREE TEXT/NARRATIVE: 64-year-old female presents to emergency room with abdominal pain. The patient has had severe constipation for the last 5 days she is had 2 tiny very hard BMs over the weekend nothing since then. The patient has chronic constipation with this episode she is tried MiraLAX and stool softeners without any success yet. Patient is developed some nausea and dry heaves. She is not aware of any fevers or chills. Left Abdomen Pain Score (Numeric/FACES): 9 - Related Data Allergies Allergy/AdvReac Type Severity Reaction Status Date / Time No Known Allergies Allergy Verified 05/27/19 10:37 Home Meds: Home Meds Sertraline [Zoloft] 100 mg PO DAILY 12/23/13 [History] Estrogen,Xiomara/Me-Testosterone [Estrogen-Methyltestosterone Tb] 1 ea PO DAILY [History] Mv,Iron,Min/Folic Acid/Biotin [Hair, Skin and Nails Softgel] 2 cap PO DAILY [History] atorvaSTATin [Lipitor] 20 mg PO DAILY 12/20/17 [History] Acetaminophen/HYDROcodone [[place] 325-5 MG] 1 - 2 tab PO Q6H PRN #8 tablet [Rx] Lactulose [Constulose] 20 gm PO Q24H #300 ml 05/27/19 [Rx] Ondansetron [Zofran ODT] 4 mg PO Q6H PRN #8 tab.dis 05/27/19 [Rx] Past Medical History HEENT History: Reports: Impaired Vision Other HEENT History: Wears glasses Cardiovascular History: Reports: High Cholesterol, Hypertension 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: Musculoskeletal History: Reports: Other (See Below) Other Musculoskeletal History: neck surgery Neurological History: Reports: Migraines Psychiatric History: Reports: Anxiety, Depression - Infectious Disease History Infectious Disease History: Reports: None - Past Surgical History HEENT Surgical History: Reports: Oral Surgery GI Surgical History: Reports: Appendectomy Female Surgical History: Reports: Hysterectomy, Salpingo-Oophorectomy Neurological Surgical History: Reports: C-Spine Musculoskeletal Surgical History: Reports: Shoulder Surgery Social & Family History - Family History Family Medical History: Noncontributory - Tobacco Use Smoking Status *Q: Never Smoker - Caffeine Use Caffeine Use: Reports: Coffee - Recreational Drug Use Recreational Drug Use: No - Living Situation & Occupation Living situation: Reports: , with Spouse Occupation: Employed ([employer]) ED ROS GENERAL - Review of Systems Review Of Systems: See Below Constitutional: Reports: No Symptoms HEENT: Reports: No Symptoms Respiratory: Reports: No Symptoms Cardiovascular: Reports: No Symptoms GI/Abdominal: Reports: Abdominal Pain, Constipation, Nausea, Vomiting. Denies: Diarrhea : Reports: No Symptoms Musculoskeletal: Reports: No Symptoms Skin: Reports: No Symptoms ED EXAM, GI/ABD - Physical Exam Exam: See Below Exam Limited By: No Limitations General Appearance: Alert, Mild Distress (From the discomfort and pain) Head: Atraumatic, Normocephalic Neck: Normal Inspection, Supple, Non-Tender, Full Range of Motion Respiratory/Chest: No Respiratory Distress, Lungs Clear, Normal Breath Sounds Cardiovascular: Regular Rate, Rhythm, No Edema, No Murmur GI/Abdominal Exam: Normal Bowel Sounds, Soft, Other (Diffuse discomfort no rigidity rebound or guarding appreciated) Course - Vital Signs Last Recorded V/S: Last Vital Signs Temp 37.1 C 05/27/19 10:32 Pulse 107 H 05/27/19 10:32 Resp 18 05/27/19 10:32 BP 170/128 H 05/27/19 10:32 Pulse Ox 100 05/27/19 10:32 - Orders/Labs/Meds Orders: Active Orders 24 hr Category Date Time Status Enema [RC] ASDIRECTED Care 05/27/19 12:06 Active Abdomen 2V AP Flat Upright [CR] Stat Exams 05/27/19 11:16 Taken Labs: Laboratory Tests 05/27/19 05/27/19 Range/Units 11:30 11:30 WBC 7.37 (3.98-10.04) K/mm3 RBC 4.33 (3.98-5.22) M/mm3 Hgb 14.7 (11.2-15.7) gm/dl Hct 45.5 H (34.1-44.9) % MCV 105.1 H D (79.4-94.8) fl MCH 33.9 H (25.6-32.2) pg MCHC 32.3 (32.2-35.5) g/dl RDW Std Deviation 46.8 H (36.4-46.3) fL Plt Count 334 (182-369) K/mm3 MPV 8.5 L (9.4-12.3) fl Neut % (Auto) 72.0 H (34.0-71.1) % Lymph % (Auto) 19.4 (19.3-51.7) % [place] % (Auto) 6.6 (4.7-12.5) % Eos % (Auto) 1.2 (0.7-5.8) Baso % (Auto) 0.7 (0.1-1.2) % Neut # (Auto) 5.30 (1.56-6.13) K/mm3 Lymph # (Auto) 1.43 (1.18-3.74) K/mm3 [place] # (Auto) 0.49 H (0.24-0.36) K/mm3 Eos # (Auto) 0.09 (0.04-0.36) K/mm3 Baso # (Auto) 0.05 (0.01-0.08) K/mm3 Manual Slide Review Abnormal smear Sodium 139 (136-145) mEq/L Potassium 3.7 (3.5-5.1) mEq/L Chloride 102 (98-107) mEq/L Carbon Dioxide 23 (21-32) mEq/L Anion Gap 17.7 H (5-15) BUN 14 (7-18) mg/dL Creatinine 1.1 H (0.55-1.02) mg/dL Est Cr Clr Drug Dosing 47.72 mL/min Estimated GFR (MDRD) 50 (>60) mL/min BUN/Creatinine Ratio 12.7 L (14-18) Glucose 81 (80-115) mg/dL Calcium 9.5 (8.5-10.1) mg/dL Magnesium 2.0 (1.8-2.4) mg/dl Total Bilirubin 0.7 (0.2-1.0) mg/dL AST 18 (15-37) U/L ALT 21 (14-59) U/L Alkaline Phosphatase 52 (46-116) U/L Total Protein 7.7 (6.4-8.2) g/dl Albumin 4.1 (3.4-5.0) g/dl Globulin 3.6 gm/dL Albumin/Globulin Ratio 1.1 (1-2) Lipase 106 (73-393) U/L Meds: Medications Discontinued Medications Generic Name Dose Route Start Last Admin Trade Name Monserrat PRN Reason Stop Dose Admin Diatrizoate Meglum/Diatrizoate Sod 90 ml 05/27/19 15:11 05/27/19 16:02 Gastrografin 37% PO 05/27/19 15:12 120 ml ONETIME ONE Administration Dicyclomine HCl 20 mg 05/27/19 14:34 05/27/19 14:49 Bentyl PO 05/27/19 14:35 20 mg ONETIME ONE Administration Fentanyl 50 mcg 05/27/19 12:09 05/27/19 12:43 Sublimaze IVPUSH 05/27/19 12:10 50 mcg ONETIME ONE Administration Fentanyl 50 mcg 05/27/19 17:11 05/27/19 17:20 Sublimaze IVPUSH 05/27/19 17:12 50 mcg ONETIME ONE Administration Lactated Ringer's 1,000 mls @ 999 mls/hr 05/27/19 11:13 05/27/19 11:31 Ringers, Lactated IV 05/27/19 12:13 999 mls/hr .BOLUS ONE Administration Lactated Ringer's 1,000 mls @ 999 mls/hr 05/27/19 14:17 05/27/19 14:49 Ringers, Lactated IV 05/27/19 15:17 999 mls/hr .BOLUS ONE Administration Iopamidol 100 ml 05/27/19 15:11 05/27/19 16:02 Isovue-300 (61%) IVPUSH 05/27/19 15:12 100 ml ONETIME ONE Administration Ondansetron HCl 4 mg 05/27/19 11:13 05/27/19 11:31 Zofran IVPUSH 05/27/19 11:14 4 mg ONETIME ONE Administration Sodium Chloride 10 ml 05/27/19 15:11 05/27/19 16:02 Saline Flush FLUSH 05/27/19 15:12 10 ml ONETIME ONE Administration - Re-Assessments/Exams Free Text/Narrative Re-Assessment/Exam: 05/27/19 12:15 Abdominal x-ray shows extensive stool accumulation especially in the lower colon and sigmoid. CBC is nonsuggestive other labs pending we will try a soapsuds enema. 05/27/19 18:56 We attempted an enema she kept it in for quite a long time but did not really have much results with this. We discussed further testing versus discharge with mag citrate and they would like to pursue a CT at this point this was ordered the results of this was fairly unremarkable she is got areas of the bowel with some wall thickening within the colon possibly representing nonspecific colitis the patient has not had any diarrhea so I do not think this really is a good representation of what is going on I discussed this with the patient and her and we think probably the safest option at this point is to try mag citrate started on lactulose. And see how this goes with very close follow-up with her primary provider Departure - Departure Time of Disposition: 18:57 Disposition: Home, Self-Care 01 Clinical Impression: Constipation, Abdominal pain - Discharge Information Prescriptions: Acetaminophen/HYDROcodone [[place] 325-5 MG] 1 - 2 tab PO Q6H PRN #8 tablet PRN Reason: Abdominal Pain Lactulose [Constulose] 20 gm PO Q24H #300 ml Ondansetron [Zofran ODT] 4 mg PO Q6H PRN #8 tab.dis PRN Reason: Nausea/Vomiting Referrals: Matthew Martinez MD [Primary Care Provider] - Forms: ED Department Discharge Additional Instructions: Return to the emergency room with any questions problems or worsening symptoms. Follow-up with your regular provider in 2 days in the clinic. Use the medications as directed. Started on hydrocodone for pain use this only for the next day. You have been given Zofran for nausea and vomiting. And you have been given lactulose for long-term control of your constipation. 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 While at the pharmacy metal pickling equipment operator some magnesium citrate it is [id number] get 2 bottles drink one bottle when you get home for it over ice. Take the second bottle in the morning if you do not get the desired effect from the first bottle. Sepsis Event Note - Evaluation Sepsis Screening Result: No Definite Risk - Focused Exam Vital Signs: Vital Signs Temp Pulse Resp BP Pulse Ox 05/27/19 10:32 37.1 C 107 H 18 170/128 H 100 Date Exam was Performed: 05/27/19 Time Exam was Performed: 18:55 - My Orders Last 24 Hours: My Active Orders 05/27/19 11:16 Abdomen 2V AP Flat Upright [CR] Stat 05/27/19 12:06 Enema [RC] ASDIRECTED - Assessment/Plan Last 24 Hours: My Active Orders 05/27/19 11:16 Abdomen 2V AP Flat Upright [CR] Stat 05/27/19 12:06 Enema [RC] ASDIRECTED
[2019-05-27] MEDS ORDERED: fentaNYL 100 MCG/2 ML SDV IVPUSH ONE ×2 (12:09→17:11)
[2019-05-27] MEDS ORDERED: Dicyclomine 10 MG Cap PO ONE (14:34)
[2019-05-27] MEDS ORDERED: Iopamidol 612 MG/ML 100 ML Bottle IVPUSH ONE (15:11)
[2019-05-27] MEDS ORDERED: Sodium Chloride 0.9% 10 ML Syringe FLUSH ONE (15:11)
[2019-05-27] MEDS ORDERED: Diatrizoate Meglumine/Diatrizoate Sodium 37% 120 ML Bottle PO ONE (15:11)
--- NOTE | 2019-05-27 16:38 | CT ---
CT abdomen and pelvis Technique: Multiple axial sections were obtained from above the dome of the diaphragm inferiorly through the pubic symphysis. Intravenous contrast and oral contrast has been given. Delayed images were also obtained through the abdomen and pelvis. Comparison: Previous CT abdomen and pelvis exam of 12/20/17. Findings: Bowel wall thickening seen within portions of the cecum as well as right colon. Mild bowel wall thickening is seen within portions of the descending colon. Findings are suspicious for a nonspecific colitis. Visualized lung bases show nothing acute. Liver contains no focal abnormality. Multiple low density lesions are seen within the spleen which are fairly stable from previous exam. Uncertain as to etiology. Adrenal glands show no nodule. Kidneys show symmetric contrast enhancement. Left and right kidneys show very minimal low density cortical lesions most likely representing minimal cortical cysts. Pancreas shows no discrete abnormality. Gallbladder contains no calcified gallstones. Aorta shows atherosclerotic change which continues into the iliac vessels. No retroperitoneal adenopathy or mesenteric abnormalities are seen. No pelvic mass or adenopathy is seen. No free fluid or inflammatory change is identified. Appendix is not definitely visualized. Bone window settings were reviewed. No acute osseous finding is appreciated. Impression: 1. Areas of bowel wall thickening within the colon as noted above most likely representing areas of nonspecific colitis. 2. Other findings as noted above believed to be stable from prior CT abdomen and pelvis exam. Nothing acute is appreciated. Diagnostic code #3 This report was dictated in [place] Standard Time
[2019-05-27 20:14] VITALS: BP 160/104; PULSE 99
--- NOTE | 2019-05-28 06:51 | CR ---
Abdomen: Supine and upright views of the abdomen were obtained. Comparison: Prior abdominal x-ray of 06/21/10. Scattered bowel gas appears within normal limits. Gas noted within multiple nondilated small bowel loops as well as within the colon. Bony structures are slightly osteopenic. No free air is seen. No abnormal calcifications or soft tissue abnormality is seen. Impression: 1. Findings as noted above. 2. Nothing acute is appreciated on two-view abdominal x-ray. Diagnostic code #2 Study was dictated in [place] Standard Time
== END 2019-05-27 19:22 | disposition home or self-care (01) ==
LOC: JD.ED 10:25
DX: R10.9 Unspecified abdominal pain (principal); K59.00 Constipation, unspecified; E78.00 Pure hypercholesterolemia, unspecified; I10 Essential (primary) hypertension; F32.9 Major depressive disorder, single episode, unspecified; F41.9 Anxiety disorder, unspecified; Z90.89 Acquired absence of other organs; Z79.899 Other long term (current) drug therapy
CPT/HCPCS: 36415; 74019; 74177; 80053; 83690; 83735; 85025; 96361; 96374; 96375; 96376; 99284; A9270; J2405; J3010; J7120; Q9963; Q9967; 99283

== ENCOUNTER 2020-02-29 11:21 | Emergency (ER) | payer BC ==
[2020-02-29] MEDS ORDERED: Ketorolac 60 MG/2 ML SDV IM ONE (11:54)
[2020-02-29] MEDS ORDERED: Acetaminophen/HYDROcodone 325-5 MG Tab PO ONE (11:54)
--- NOTE | 2020-02-29 12:02 | EDM.PDOC ---
ED HPI GENERAL MEDICAL PROBLEM - General Chief Complaint: Back Pain or Injury Stated Complaint: BACK PAIN Time Seen by Provider: 02/29/20 11:31 Source of Information: Reports: Patient, RN Notes Reviewed - History of Present Illness INITIAL COMMENTS - FREE TEXT/NARRATIVE: 65 yr old female with R low back pain for about 2 wks. Radiates down R leg. Treated with prednisone and tramadol 10 to 14 days ago. The tramadol made her itch so she stopped that. Still having bad discomfort, at rest and with motion. Right Lower Back Pain Score (Numeric/FACES): 10 - Related Data Allergies Allergy/AdvReac Type Severity Reaction Status Date / Time tramadol Allergy Itching Verified 02/29/20 11:39 Home Meds: Home Meds Sertraline [Zoloft] 100 mg PO DAILY 12/23/13 [History] Estrogen,Xiomara/Me-Testosterone [Estrogen-Methyltestosterone Tb] 1 ea PO DAILY 11/07/16 [History] Mv,Iron,Min/Folic Acid/Biotin [Hair, Skin and Nails Softgel] 2 cap PO DAILY 12/20/17 [History] atorvaSTATin [Lipitor] 20 mg PO DAILY 12/20/17 [History] Acetaminophen/HYDROcodone [[place] 325-5 MG] 1 - 2 tab PO Q6H PRN #8 tablet 05/27/19 [Rx] Lactulose [Constulose] 20 gm PO Q24H #300 ml 05/27/19 [Rx] Ondansetron [Zofran ODT] 4 mg PO Q6H PRN #8 tab.dis 05/27/19 [Rx] Acetaminophen/HYDROcodone [[place] 325-5 MG] 1 tab PO Q6H #14 tablet 02/29/20 [Rx] predniSONE [Prednisone] 50 mg PO DAILY #6 tablet 02/29/20 [Rx] Past Medical History HEENT History: Reports: Impaired Vision Other HEENT History: Wears glasses Cardiovascular History: Reports: High Cholesterol, Hypertension Gastrointestinal History: Reports: Chronic Constipation 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: Musculoskeletal History: Reports: Other (See Below) Other Musculoskeletal History: neck surgery Neurological History: Reports: Migraines Psychiatric History: Reports: Anxiety, Depression - Infectious Disease History Infectious Disease History: Reports: None - Past Surgical History HEENT Surgical History: Reports: Oral Surgery GI Surgical History: Reports: Appendectomy Female Surgical History: Reports: Hysterectomy, Salpingo-Oophorectomy Neurological Surgical History: Reports: C-Spine Musculoskeletal Surgical History: Reports: Shoulder Surgery Social & Family History - Family History Family Medical History: Noncontributory - Tobacco Use Tobacco Use Status *Q: Never Tobacco User - Caffeine Use Caffeine Use: Reports: Coffee - Living Situation & Occupation Living situation: Reports: , with Spouse Occupation: Employed ([employer]) ED ROS GENERAL - Review of Systems Review Of Systems: See Below Constitutional: Denies: Fever, Chills HEENT: Reports: No Symptoms Respiratory: Reports: No Symptoms Cardiovascular: Reports: No Symptoms GI/Abdominal: Reports: No Symptoms Musculoskeletal: Reports: Back Pain, Leg Pain Skin: Reports: No Symptoms Neurological: Reports: No Symptoms ED EXAM,LOWER BACK PAIN/INJURY - Physical Exam Exam: See Below General Appearance: Alert, Moderate Distress Head: Atraumatic Neck: Supple Respiratory/Chest: No Respiratory Distress Back Exam: Paraspinal Tenderness (R low back) Extremities: Normal Inspection. No: Leg Pain, Increased Warmth, Redness Neurological: Alert, No Motor/Sensory Deficits, Other (pain with str. leg raising bilat. ) Skin Exam: Warm, Dry, Normal Color, No Rash Course - Vital Signs Last Recorded V/S: Last Vital Signs Temp 99.0 F 02/29/20 11:36 Pulse 90 02/29/20 12:19 Resp 16 02/29/20 12:19 BP 143/80 H 02/29/20 12:19 Pulse Ox 97 02/29/20 12:19 - Orders/Labs/Meds Meds: Medications Discontinued Medications Generic Name Dose Route Start Last Admin Trade Name Monserrat PRN Reason Stop Dose Admin Hydrocodone Bitart/Acetaminophen 1 tab 02/29/20 11:54 02/29/20 12:02 [place] 325-5 Mg PO 02/29/20 11:55 1 tab ONETIME ONE Administration Ketorolac Tromethamine 60 mg 02/29/20 11:54 02/29/20 12:01 Toradol IM 02/29/20 11:55 60 mg ONETIME ONE Administration Departure - Departure Time of Disposition: 11:59 Disposition: Home, Self-Care 01 Condition: Fair Clinical Impression: Back pain Qualifiers: Back pain location: low back pain Chronicity: acute Back pain laterality: right Sciatica presence: with sciatica Sciatica laterality: sciatica of right side Qualified Code(s): M54.41 - Lumbago with sciatica, right side - Discharge Information Prescriptions: Acetaminophen/HYDROcodone [[place] 325-5 MG] 1 tab PO Q6H #14 tablet predniSONE [Prednisone] 50 mg PO DAILY #6 tablet Instructions: Acute Back Pain, Adult Referrals: Matthew Martinez MD [Primary Care Provider] - Forms: ED Department Discharge, ED Return to Work/School Form Additional Instructions: rest back, avoid heavy lifting for now. Prednisone 50 mg daily for 6 days, first dose today. Hydorocodone q 6 hr if needed for severe pain. Prescriptions have been sent to [facility], [place] [facility]. Start Physical therapy at group and therapist of your choice. See your provider later this week for recheck, call for appointment. Sepsis Event Note (ED) - Evaluation Sepsis Screening Result: No Definite Risk - Focused Exam Vital Signs: Vital Signs Temp Pulse Resp BP Pulse Ox 02/29/20 12:19 90 16 143/80 H 97 02/29/20 11:36 99.0 F 104 H 16 168/94 H 99
[2020-02-29 12:20] VITALS: BP 143/80; PULSE 90
== END 2020-02-29 12:20 | disposition home or self-care (01) ==
LOC: JD.ED 11:21
DX: M54.41 Lumbago with sciatica, right side (principal); E78.00 Pure hypercholesterolemia, unspecified; I10 Essential (primary) hypertension; F41.9 Anxiety disorder, unspecified; F32.9 Major depressive disorder, single episode, unspecified; Z88.5 Allergy status to narcotic agent; Z79.899 Other long term (current) drug therapy
CPT/HCPCS: 96374; 99283; A9270; J1885

== ENCOUNTER 2020-04-06 07:09 | Emergency (ER) | payer BC ==
[2020-04-06] MEDS ORDERED: Dexamethasone 10 MG/ML SDV IVPUSH ONE (07:49)
[2020-04-06] MEDS ORDERED: Sodium Chloride 0.9% 10 ML Syringe FLUSH PRN (07:49)
[2020-04-06] MEDS ORDERED: diphenhydrAMINE 50 MG/ML SDV IVPUSH ONE ×2 (07:49→10:15)
[2020-04-06] MEDS ORDERED: Metoclopramide 10 MG/2 ML SDV IVPUSH ONE (07:49)
[2020-04-06] MEDS ORDERED: Sodium Chloride 0.9% 1,000 ML IV SCH (08:00)
--- NOTE | 2020-04-06 08:32 | EDM.PDOC ---
ED HPI GENERAL MEDICAL PROBLEM - General Chief Complaint: Headache Stated Complaint: HEADACHE Time Seen by Provider: 04/06/20 07:32 Source of Information: Reports: Patient, RN Notes Reviewed - History of Present Illness INITIAL COMMENTS - FREE TEXT/NARRATIVE: 65 yr old female comes in with severe Scott. Started about 4 to 5 days ago. Hx of migraines, this is worse than usual. Bilat, throbbing, nausea and vomtiing. Occasional cough, no fever or chills. Tested covid neg. last week. Frontal Headache Pain Score (Numeric/FACES): 10 - Related Data Allergies Allergy/AdvReac Type Severity Reaction Status Date / Time ketorolac [From Toradol] Allergy Hives Verified 04/06/20 07:19 tramadol Allergy Itching Verified 04/06/20 07:19 Home Meds: Home Meds Sertraline [Zoloft] 100 mg PO DAILY 12/23/13 [History] Estrogen,Xiomara/Me-Testosterone [Estrogen-Methyltestosterone Tb] 1 ea PO DAILY 11/07/16 [History] Mv,Iron,Min/Folic Acid/Biotin [Hair, Skin and Nails Softgel] 2 cap PO DAILY 12/20/17 [History] atorvaSTATin [Lipitor] 20 mg PO DAILY 12/20/17 [History] Lactulose [Constulose] 20 gm PO Q24H #300 ml 05/27/19 [Rx] Acetaminophen/Codeine [Tylenol with Codeine No.3 300MG/30MG] 1 tab PO Q6HR PRN #7 tab 04/06/20 [Rx] Losartan/Hydrochlorothiazide [Losartan-HCTZ 50-12.5 MG] 12.5 - 50 mg PO DAILY 04/06/20 [History] Ondansetron [Zofran ODT] 4 mg PO Q8HR PRN #7 tab.dis 04/06/20 [Rx] SUMAtriptan succinate [Imitrex] 100 mg PO ASDIRECTED PRN 04/06/20 [History] Past Medical History HEENT History: Reports: Impaired Vision Other HEENT History: Wears glasses Cardiovascular History: Reports: High Cholesterol, Hypertension Gastrointestinal History: Reports: Chronic Constipation 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: Musculoskeletal History: Reports: Fracture, Other (See Below) Other Musculoskeletal History: neck surgery Neurological History: Reports: Migraines Psychiatric History: Reports: Anxiety, Depression Hematologic History: Reports: Iron Deficiency - Infectious Disease History Infectious Disease History: Reports: Chicken Pox, Influenza, Measles, Mumps - Past Surgical History HEENT Surgical History: Reports: Oral Surgery GI Surgical History: Reports: Appendectomy Female Surgical History: Reports: Hysterectomy, Salpingo-Oophorectomy Neurological Surgical History: Reports: C-Spine Musculoskeletal Surgical History: Reports: ORIF, Shoulder Surgery Other Musculoskeletal Surgeries/Procedures:: right rotator cuff surgery, ORIF R) ankle. Social & Family History - Family History Family Medical History: No Pertinent Family History - Tobacco Use Tobacco Use Status *Q: Never Tobacco User Second Hand Smoke Exposure: No - Caffeine Use Caffeine Use: Reports: Coffee - Recreational Drug Use Recreational Drug Use: No - Living Situation & Occupation Living situation: Reports: , with Spouse Occupation: Employed ([employer]) ED ROS GENERAL - Review of Systems Review Of Systems: See Below Constitutional: Denies: Fever, Chills, Diaphoresis HEENT: Denies: Sinus Problem Respiratory: Reports: Cough. Denies: Shortness of Breath Cardiovascular: Denies: Chest Pain GI/Abdominal: Reports: Nausea, Vomiting. Denies: Abdominal Pain - Physical Exam Exam: See Below Exam Limited By: No Limitations General Appearance: Alert, Moderate Distress Eye Exam: Bilateral Eye: PERRL Head Exam: Atraumatic. No: Facial Swelling Neck: Supple Respiratory/Chest: No Respiratory Distress, Lungs Clear, Normal Breath Sounds Cardiovascular: Regular Rate, Rhythm GI/Abdominal: Soft Neuro Exam (Abbreviated): Alert, Oriented, No Motor/Sensory Deficits Extremities: Normal Inspection Skin Exam: Warm, Dry, Normal Color Course - Vital Signs Last Recorded V/S: Last Vital Signs Temp 97.7 F 04/06/20 11:03 Pulse 93 04/06/20 11:03 Resp 18 04/06/20 11:03 BP 91/72 04/06/20 11:03 Pulse Ox 96 04/06/20 11:03 - Orders/Labs/Meds Orders: Active Orders 24 hr Category Date Time Status Peripheral IV Care [RC] . DIRECTED Care 04/06/20 07:50 Active Sodium Chloride 0.9% [Normal Saline] 1,000 ml Med 04/06/20 08:00 Active IV ASDIRECTED Sodium Chloride 0.9% [Saline Flush] Med 04/06/20 07:49 Active 10 ml FLUSH ASDIRECTED PRN Peripheral IV Insertion Adult [OM.PC] Stat Oth 04/06/20 07:48 Ordered Medication Orders Sodium Chloride (Normal Saline) 1,000 mls @ 150 mls/hr IV ASDIRECTED MARVA Last Admin: 04/06/20 08:08 Dose: 150 mls/hr Documented by: ROSALINA Sodium Chloride (Saline Flush) 10 ml FLUSH ASDIRECTED PRN PRN Reason: Keep Vein Open Last Admin: 04/06/20 08:08 Dose: 10 ml Documented by: ROSALINA Meds: Medications Generic Name Dose Route Start Last Admin Trade Name Freq PRN Reason Stop Dose Admin Sodium Chloride 1,000 mls @ 150 mls/hr 04/06/20 08:00 04/06/20 08:08 Normal Saline IV 150 mls/hr ASDIRECTED MARVA Administration Sodium Chloride 10 ml 04/06/20 07:49 04/06/20 08:08 Saline Flush FLUSH 10 ml ASDIRECTED PRN Administration Keep Vein Open Discontinued Medications Generic Name Dose Route Start Last Admin Trade Name Freq PRN Reason Stop Dose Admin Dexamethasone 4 mg 04/06/20 07:49 04/06/20 08:04 Decadron IVPUSH 04/06/20 07:50 4 mg ONETIME ONE Administration Diphenhydramine HCl 25 mg 04/06/20 07:49 04/06/20 08:00 Benadryl IVPUSH 04/06/20 07:50 25 mg ONETIME ONE Administration Diphenhydramine HCl 25 mg 04/06/20 10:15 04/06/20 10:22 Benadryl IVPUSH 04/06/20 10:16 25 mg ONETIME ONE Administration Hydromorphone HCl 1 mg 04/06/20 08:34 04/06/20 08:40 Dilaudid IVPUSH 04/06/20 08:35 1 mg ONETIME ONE Administration Hydromorphone HCl 0.5 mg 04/06/20 11:02 04/06/20 11:07 Dilaudid IVPUSH 04/06/20 11:03 0.5 mg ONETIME ONE Administration Metoclopramide HCl 5 mg 04/06/20 07:49 04/06/20 08:02 Reglan IVPUSH 04/06/20 07:50 5 mg ONETIME ONE Administration Ondansetron HCl 4 mg 04/06/20 10:15 04/06/20 10:20 Zofran IVPUSH 04/06/20 10:16 4 mg ONETIME ONE Administration - Re-Assessments/Exams Free Text/Narrative Re-Assessment/Exam: 04/06/20 11:26 Feeling better after a lot of meds given. Discharge instr. as documented. Departure - Departure Time of Disposition: 11:22 Disposition: Home, Self-Care 01 Condition: Fair Clinical Impression: Migraine - Discharge Information Prescriptions: Acetaminophen/Codeine [Tylenol with Codeine No.3 300MG/30MG] 1 tab PO Q6HR PRN #7 tab PRN Reason: Headache Ondansetron [Zofran ODT] 4 mg PO Q8HR PRN #7 tab.dis PRN Reason: Nausea/Vomiting Referrals: Matthew Martinez MD [Primary Care Provider] - Forms: ED Department Discharge Additional Instructions: Rest, no driving today, you have been given multiple sedative meds while here in the ED. Zofran if needed for further nausea or vomiting. Tylenol for mild to moderate Scott or tylenol with codeine only if needed for severe headache. Follow up clinic as needed. Sepsis Event Note (ED) - Evaluation Sepsis Screening Result: No Definite Risk - Focused Exam Vital Signs: Vital Signs Temp Pulse Resp BP Pulse Ox 04/06/20 11:03 97.7 F 93 18 91/72 96 04/06/20 07:15 97.5 F 108 H 18 166/104 H 100 - My Orders Last 24 Hours: My Active Orders 04/06/20 07:48 Peripheral IV Insertion Adult [OM.PC] Stat 04/06/20 07:49 Sodium Chloride 0.9% [Saline Flush] 10 ml FLUSH ASDIRECTED PRN 04/06/20 07:50 Peripheral IV Care [RC] . DIRECTED 04/06/20 08:00 Sodium Chloride 0.9% [Normal Saline] 1,000 ml IV ASDIRECTED - Assessment/Plan Last 24 Hours: My Active Orders 04/06/20 07:48 Peripheral IV Insertion Adult [OM.PC] Stat 04/06/20 07:49 Sodium Chloride 0.9% [Saline Flush] 10 ml FLUSH ASDIRECTED PRN 04/06/20 07:50 Peripheral IV Care [RC] . DIRECTED 04/06/20 08:00 Sodium Chloride 0.9% [Normal Saline] 1,000 ml IV ASDIRECTED
[2020-04-06] MEDS ORDERED: HYDROmorphone 1 MG/ML Syringe IVPUSH ONE (08:34)
[2020-04-06] MEDS ORDERED: Ondansetron 4 MG/2 ML SDV IVPUSH ONE (10:15)
[2020-04-06] MEDS ORDERED: HYDROmorphone 0.5 MG/0.5 ML Syringe IVPUSH ONE (11:02)
[2020-04-06 11:04] VITALS: BP 91/72; PULSE 93
== END 2020-04-06 11:37 | disposition home or self-care (01) ==
LOC: JD.ED 07:09
DX: G43.909 Migraine, unspecified, not intractable, without status migrainosus (principal); I10 Essential (primary) hypertension; F41.9 Anxiety disorder, unspecified; F32.9 Major depressive disorder, single episode, unspecified; E78.00 Pure hypercholesterolemia, unspecified; Z88.6 Allergy status to analgesic agent; Z88.5 Allergy status to narcotic agent; Z79.899 Other long term (current) drug therapy
CPT/HCPCS: 96374; 96375; 96376; 99283; J1100; J1170; J1200; J2405; J2765; J7030

== ENCOUNTER 2021-02-14 08:36 | Emergency (ER) | payer BC ==
[2021-02-14] MEDS ORDERED: fentaNYL 100 MCG/2 ML SDV IVPUSH ONE ×4 (09:46→13:18)
--- NOTE | 2021-02-14 09:46 | EDM.PDOC ---
ED HPI GENERAL MEDICAL PROBLEM - General Chief Complaint: Back Pain or Injury Stated Complaint: BACK PAIN/HIGH BP Time Seen by Provider: 02/14/21 09:39 - History of Present Illness INITIAL COMMENTS - FREE TEXT/NARRATIVE: 66-year-old female presents the emergency room with severe back pain elevated blood pressure. This pain started 4 days ago progressively getting worse. She can hardly move without excruciating pain the pain does not favor 1 side or the other was gradual in onset. No associated nausea or vomiting interestingly the patient has decreased pain and smell sensation. She did have a viral type illness last week but appeared to get over it. Fortunately she had the Covid vaccine. Patient has no history of coronary artery disease. Her father in his 60s of an PA no history of aortic disease however no other significant family history. Back Pain Score (Numeric/FACES): 10 - Related Data Allergies Allergy/AdvReac Type Severity Reaction Status Date / Time ketorolac [From Toradol] Allergy Hives Verified 02/14/21 08:49 tramadol Allergy Itching Verified 02/14/21 08:49 Home Meds: Home Meds Sertraline [Zoloft] 100 mg PO DAILY 12/23/13 [History] Estrogen,Xiomara/Me-Testosterone [Estrogen-Methyltestosterone Tb] 1 ea PO DAILY 11/07/16 [History] Mv,Iron,Min/Folic Acid/Biotin [Hair, Skin and Nails Softgel] 2 cap PO DAILY 12/20/17 [History] atorvaSTATin [Lipitor] 20 mg PO DAILY 12/20/17 [History] Lactulose [Constulose] 20 gm PO Q24H #300 ml 05/27/19 [Rx] Acetaminophen/Codeine [Tylenol with Codeine No.3 300MG/30MG] 1 tab PO Q6HR PRN #7 tab 04/06/20 [Rx] Losartan/Hydrochlorothiazide [Losartan-HCTZ 50-12.5 MG] 12.5 - 50 mg PO DAILY 04/06/20 [History] Ondansetron [Zofran ODT] 4 mg PO Q8HR PRN #7 tab.dis 04/06/20 [Rx] SUMAtriptan succinate [Imitrex] 100 mg PO ASDIRECTED PRN 04/06/20 [History] Hydrocodone/Acetaminophen [HYDROcodone-Acetaminophen 5-325 MG] 1 each PO QID PRN #14 tab 02/14/21 [Rx] Naproxen 500 mg PO BID #20 tablet 02/14/21 [Rx] Naproxen [Naprosyn] 500 mg PO BID #20 tablet 02/14/21 [Rx] Orphenadrine [Norflex] 100 mg PO BID PRN #14 tab 02/14/21 [Rx] Past Medical History HEENT History: Reports: Impaired Vision Other HEENT History: Wears glasses Cardiovascular History: Reports: High Cholesterol, Hypertension Gastrointestinal History: Reports: Chronic Constipation 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: Musculoskeletal History: Reports: Fracture, Other (See Below) Other Musculoskeletal History: neck surgery Neurological History: Reports: Migraines Psychiatric History: Reports: Anxiety, Depression Hematologic History: Reports: Iron Deficiency - Infectious Disease History Infectious Disease History: Reports: Chicken Pox, Influenza, Measles, Mumps - Past Surgical History HEENT Surgical History: Reports: Oral Surgery GI Surgical History: Reports: Appendectomy Female Surgical History: Reports: Hysterectomy, Salpingo-Oophorectomy Neurological Surgical History: Reports: C-Spine Musculoskeletal Surgical History: Reports: ORIF, Shoulder Surgery Other Musculoskeletal Surgeries/Procedures:: right rotator cuff surgery, ORIF R) ankle. Social & Family History - Family History Family Medical History: No Pertinent Family History - Tobacco Use Tobacco Use Status *Q: Never Tobacco User Second Hand Smoke Exposure: No - Caffeine Use Caffeine Use: Reports: Coffee - Recreational Drug Use Recreational Drug Use: No - Living Situation & Occupation Living situation: Reports: , with Spouse Occupation: Employed ([employer]) ED ROS GENERAL - Review of Systems Review Of Systems: See Below Constitutional: Reports: No Symptoms HEENT: Reports: No Symptoms Respiratory: Reports: No Symptoms Cardiovascular: Reports: No Symptoms Endocrine: Reports: No Symptoms GI/Abdominal: Reports: Other (Decreased taste and smell) : Reports: No Symptoms Musculoskeletal: Reports: No Symptoms Skin: Reports: No Symptoms Neurological: Reports: No Symptoms ED EXAM, GENERAL - Physical Exam Exam: See Below Exam Limited By: No Limitations General Appearance: Alert, No Apparent Distress Head: Atraumatic, Normocephalic Neck: Normal Inspection, Supple, Non-Tender, Full Range of Motion Respiratory/Chest: No Respiratory Distress, Lungs Clear, Normal Breath Sounds Cardiovascular: Regular Rate, Rhythm, No Edema, No Murmur GI/Abdominal: Normal Bowel Sounds, Soft, Non-Tender Back Exam: Normal Inspection, Vertebral Tenderness, Other (Marked tenderness in the upper lumbar lower thoracic region it is hard to differentiate if this is bony in nature soft tissue in nature it just hurts in this area. After the patient felt better she seemed to have some right-sided rib pain also) Extremities: Normal Inspection, No Pedal Edema, Other (Pulses normal) #1 Interpretation EKG Date: 02/14/21 Rhythm: NSR [place]: Normal P-Wave: Present QRS: Normal ST-T: Normal QT: Normal Comparison: NA - No Prior EKG EKG Interpretation Comments: Normal EKG with the exception of baseline artifact Course - Vital Signs Last Recorded V/S: Last Vital Signs Temp 37.2 C 02/14/21 08:44 Pulse 85 02/14/21 09:00 Resp 18 02/14/21 08:44 BP 145/82 H 02/14/21 11:53 Pulse Ox 100 02/14/21 08:44 - Orders/Labs/Meds Orders: Active Orders 24 hr Category Date Time Status Sodium Chloride 0.9% [Normal Saline] 100 ml Med 02/14/21 10:15 Active IV ASDIRECTED Sodium Chloride 0.9% [Saline Flush] Med 02/14/21 10:10 Active 10 ml FLUSH ONETIME PRN Medication Orders Sodium Chloride (Normal Saline) 100 mls @ 75 mls/hr IV ASDIRECTED MARVA Last Admin: 02/14/21 10:33 Dose: 75 mls/hr Documented by: MINDA Sodium Chloride (Sodium Chloride 0.9% 10 Ml Syringe) 10 ml FLUSH ONETIME PRN PRN Reason: IV FLUSH Last Admin: 02/14/21 10:33 Dose: 10 ml Documented by: MINDA Labs: Laboratory Tests 02/14/21 02/14/21 02/14/21 Range/Units 09:58 09:58 09:58 WBC 5.05 (3.98-10.04) K/mm3 RBC 3.95 L (3.98-5.22) M/mm3 Hgb 13.7 (11.2-15.7) gm/dl Hct 41.1 (34.1-44.9) % MCV 104.1 H (79.4-94.8) fl MCH 34.7 H (25.6-32.2) pg MCHC 33.3 (32.2-35.5) g/dl RDW Std Deviation 43.2 (36.4-46.3) fL Plt Count 306 (182-369) K/mm3 MPV 8.2 L (9.4-12.3) fl Neut % (Auto) 62.0 (34.0-71.1) % Lymph % (Auto) 24.4 (19.3-51.7) % [place] % (Auto) 7.1 (4.7-12.5) % Eos % (Auto) 5.3 (0.7-5.8) Baso % (Auto) 1.2 (0.1-1.2) % Neut # (Auto) 3.13 (1.56-6.13) K/mm3 Lymph # (Auto) 1.23 (1.18-3.74) K/mm3 [place] # (Auto) 0.36 (0.24-0.36) K/mm3 Eos # (Auto) 0.27 (0.04-0.36) K/mm3 Baso # (Auto) 0.06 (0.01-0.08) K/mm3 PT 10.9 (9.7-12.0) SECONDS INR 0.98 APTT 25.3 (21.7-31.4) SECONDS Sodium 135 L (136-145) mEq/L Potassium 4.3 (3.5-5.1) mEq/L Chloride 100 (98-107) mEq/L Carbon Dioxide 24 (21-32) mEq/L Anion Gap 15.3 H (5-15) BUN 14 (7-18) mg/dL Creatinine 1.0 (0.55-1.02) mg/dL Est Cr Clr Drug Dosing 53.20 mL/min Estimated GFR (MDRD) 56 (>60) mL/min BUN/Creatinine Ratio 14.0 (14-18) Glucose 90 (70-99) mg/dL Calcium 9.1 (8.5-10.1) mg/dL Total Bilirubin 0.6 (0.2-1.0) mg/dL AST 14 L (15-37) U/L ALT 15 (14-59) U/L Alkaline Phosphatase 53 (46-116) U/L Troponin I < 0.017 (0.00-0.056) ng/mL Total Protein 7.1 (6.4-8.2) g/dl Albumin 3.9 (3.4-5.0) g/dl Globulin 3.2 gm/dL Albumin/Globulin Ratio 1.2 (1-2) SARS-CoV-2 RNA (EZE) (NEGATIVE) 02/14/21 Range/Units 11:53 WBC (3.98-10.04) K/mm3 RBC (3.98-5.22) M/mm3 Hgb (11.2-15.7) gm/dl Hct (34.1-44.9) % MCV (79.4-94.8) fl MCH (25.6-32.2) pg MCHC (32.2-35.5) g/dl RDW Std Deviation (36.4-46.3) fL Plt Count (182-369) K/mm3 MPV (9.4-12.3) fl Neut % (Auto) (34.0-71.1) % Lymph % (Auto) (19.3-51.7) % [place] % (Auto) (4.7-12.5) % Eos % (Auto) (0.7-5.8) Baso % (Auto) (0.1-1.2) % Neut # (Auto) (1.56-6.13) K/mm3 Lymph # (Auto) (1.18-3.74) K/mm3 [place] # (Auto) (0.24-0.36) K/mm3 Eos # (Auto) (0.04-0.36) K/mm3 Baso # (Auto) (0.01-0.08) K/mm3 PT (9.7-12.0) SECONDS INR APTT (21.7-31.4) SECONDS Sodium (136-145) mEq/L Potassium (3.5-5.1) mEq/L Chloride (98-107) mEq/L Carbon Dioxide (21-32) mEq/L Anion Gap (5-15) BUN (7-18) mg/dL Creatinine (0.55-1.02) mg/dL Est Cr Clr Drug Dosing mL/min Estimated GFR (MDRD) (>60) mL/min BUN/Creatinine Ratio (14-18) Glucose (70-99) mg/dL Calcium (8.5-10.1) mg/dL Total Bilirubin (0.2-1.0) mg/dL AST (15-37) U/L ALT (14-59) U/L Alkaline Phosphatase (46-116) U/L Troponin I (0.00-0.056) ng/mL Total Protein (6.4-8.2) g/dl Albumin (3.4-5.0) g/dl Globulin gm/dL Albumin/Globulin Ratio (1-2) SARS-CoV-2 RNA (EZE) Negative (NEGATIVE) Meds: Medications Generic Name Dose Route Start Last Admin Trade Name Freq PRN Reason Stop Dose Admin Sodium Chloride 100 mls @ 75 mls/hr 02/14/21 10:15 02/14/21 10:33 Normal Saline IV 75 mls/hr ASDIRECTED MARVA Administration Sodium Chloride 10 ml 02/14/21 10:10 02/14/21 10:33 Sodium Chloride 0.9% 10 Ml Syringe FLUSH 10 ml ONETIME PRN Administration IV FLUSH Discontinued Medications Generic Name Dose Route Start Last Admin Trade Name Freq PRN Reason Stop Dose Admin Hydrocodone Bitart/Acetaminophen 1 tab 02/14/21 11:30 02/14/21 11:50 Acetaminophen/Hydrocodone 325-5 Mg Tab PO 02/14/21 11:31 1 tab ONETIME ONE Administration Hydrocodone Bitart/Acetaminophen 1 tab 02/14/21 13:19 02/14/21 13:38 Acetaminophen/Hydrocodone 325-5 Mg Tab PO 02/14/21 13:20 1 tab ONETIME ONE Administration Fentanyl 50 mcg 02/14/21 09:46 02/14/21 10:04 Fentanyl 100 Mcg/2 Ml Sdv IVPUSH 02/14/21 09:47 50 mcg ONETIME ONE Administration Fentanyl 50 mcg 02/14/21 09:49 02/14/21 10:58 Fentanyl 100 Mcg/2 Ml Sdv IVPUSH 02/14/21 09:50 50 mcg ONETIME ONE Administration Fentanyl 50 mcg 02/14/21 11:30 02/14/21 11:49 Fentanyl 100 Mcg/2 Ml Sdv IVPUSH 02/14/21 11:31 50 mcg ONETIME ONE Administration Fentanyl 50 mcg 02/14/21 13:18 02/14/21 13:22 Fentanyl 100 Mcg/2 Ml Sdv IVPUSH 02/14/21 13:19 50 mcg ONETIME ONE Administration Iopamidol 100 ml 02/14/21 10:10 02/14/21 10:32 Iopamidol 755 Mg/Ml 100 Ml Bottle IVPUSH 02/14/21 10:11 100 ml ONETIME ONE Administration Ondansetron HCl 4 mg 02/14/21 09:56 02/14/21 10:03 Ondansetron 4 Mg/2 Ml Sdv IVPUSH 02/14/21 09:57 4 mg ONETIME ONE Administration Orphenadrine Citrate 100 mg 02/14/21 11:30 02/14/21 11:50 Orphenadrine 100 Mg Tab.Er PO 02/14/21 11:31 100 mg ONETIME ONE Administration - Re-Assessments/Exams Free Text/Narrative Re-Assessment/Exam: 02/14/21 11:52 CTA the chest and abdomen is unremarkable bony structures appear normal. No other acute changes appreciated. Laboratory evaluation is nondiagnostic she is developing a macrocytic process. Patient is feeling much better at this time her pain is down to about a 6 but tolerable we will give her a little more fentanyl this is short-lived we will also give a single dose of [place] and Norflex. On secondary questioning it was discovered the patient had a viral type illness last week that seemed to get better she still has residual loss of taste and smell we will check a Covid. The patient did have a Covid vaccine however. 02/14/21 13:04 She is Covid negative per our testing, albeit her situation makes you wonder if she had a mild infection. She feels much better and would like to go home 02/14/21 13:29 Patient's pain is getting worse we will give another dose of fentanyl another hydrocodone may need to adjust her discharge plan. Departure - Departure Time of Disposition: 13:12 Disposition: Home, Self-Care 01 Clinical Impression: Low back strain, Spasm of back muscles - Discharge Information Prescriptions: Hydrocodone/Acetaminophen [HYDROcodone-Acetaminophen 5-325 MG] 1 each PO QID PRN #14 tab PRN Reason: Pain Naproxen [Naprosyn] 500 mg PO BID #20 tablet Naproxen 500 mg PO BID #20 tablet Orphenadrine [Norflex] 100 mg PO BID PRN #14 tab PRN Reason: Spasms Referrals: PCP,None [Primary Care Provider] - Forms: ED Department Discharge Additional Instructions: Return to the emergency room with any questions problems or worsening symptoms. Follow-up with your regular healthcare provider as needed. You have been given a few hydrocodone use 1-2 every 6 hours only if absolutely necessary for the pain. If using this on a regular basis use a good stool softener with it as it can cause constipation. You have also been started on Naprosyn this is a Motrin like medication do not take it with Motrin use it twice daily for 5 days and then as needed always take with meals. You been started on Norflex, this is a muscle relaxant take 1 twice daily for couple of days and then as needed. Sepsis Event Note (ED) - Evaluation Sepsis Screening Result: No Definite Risk - Focused Exam Vital Signs: Vital Signs Temp Pulse Resp BP Pulse Ox 02/14/21 11:53 145/82 H 02/14/21 11:00 152/97 H 02/14/21 09:00 85 169/99 H 02/14/21 08:44 37.2 C 78 18 204/113 H 100 - My Orders Last 24 Hours: My Active Orders 02/14/21 10:10 Sodium Chloride 0.9% [Saline Flush] 10 ml FLUSH ONETIME PRN 02/14/21 10:15 Sodium Chloride 0.9% [Normal Saline] 100 ml IV ASDIRECTED - Assessment/Plan Last 24 Hours: My Active Orders 02/14/21 10:10 Sodium Chloride 0.9% [Saline Flush] 10 ml FLUSH ONETIME PRN 02/14/21 10:15 Sodium Chloride 0.9% [Normal Saline] 100 ml IV ASDIRECTED
[2021-02-14] MEDS ORDERED: Ondansetron 4 MG/2 ML SDV IVPUSH ONE (09:56)
[2021-02-14] MEDS ORDERED: Iopamidol 755 Mg/ML 100 ML Bottle IVPUSH ONE (10:10)
[2021-02-14] MEDS ORDERED: Sodium Chloride 0.9% 10 ML Syringe FLUSH PRN (10:10)
[2021-02-14] MEDS ORDERED: Sodium Chloride 0.9% 100 ML IV SCH (10:15)
--- NOTE | 2021-02-14 11:00 | CT ---
CT chest Technique: Multiple axial sections were obtained from above the lung apices inferiorly through the lung bases. Intravenous contrast was utilized in the arterial phase. Reconstructed coronal and sagittal images were obtained. Comparison: Prior chest CT study of 03/10/09. Prior chest x-ray of 12/20/17 is also available. Findings: Thoracic aorta shows no aneurysm. No dissection is seen. Pulmonary arteries show no discrete filling defects to indicate pulmonary embolism. Mediastinum shows no adenopathy. No axillary adenopathy is seen. No pericardial thickening is appreciated. Lung window settings were reviewed. Lungs show no acute parenchymal change. No pleural effusions are seen. Bone window settings were reviewed which show prior cervical spine surgery. Minimal degenerative change scattered within the thoracic spine is seen. No acute osseous abnormality is appreciated. Impression: 1. No evidence of abdominal aortic aneurysm or dissection. 2. Other findings believed to be incidental as described above. Diagnostic code #2 CT abdomen and pelvis Technique: Multiple axial sections were obtained from above the dome of the diaphragm inferiorly through the pubic symphysis. Intravenous contrast was utilized in the arterial phase. Reconstructed coronal and sagittal images were also obtained. Comparison: CT abdomen and pelvis exam of 05/28/19. Findings: Liver contains no focal parenchymal abnormality. Gallbladder contains no calcified gallstones. Numerous low density findings are seen within the spleen which appear fairly similar to previous study. Adrenal glands show no nodule. Kidneys show symmetric contrast enhancement. Small cyst is noted within the left kidney measuring about 1 cm. Right kidney shows minimal cortical cyst. Pancreas shows no abnormality. Abdominal aorta shows slight atherosclerotic change with no aneurysm or dissection. Contrast is noted within the common iliac arteries as well as external and internal iliac arteries. No retroperitoneal adenopathy is seen. No mesenteric abnormalities are noted. No pelvic mass or adenopathy is seen. Mild increased stool is seen throughout the colon. Appendix not definitely visualized. No free fluid or inflammatory change is seen. Bone window settings were reviewed which show mild degenerative change scattered within the spine. No acute osseous abnormality is appreciated. Impression: 1. Findings believed to be incidental as described above and similar to prior CT. No findings of aneurysm or dissection are seen within the aorta. 2. Slight increased stool within the colon. 3. No acute abnormality is appreciated. Diagnostic code #2
[2021-02-14] MEDS ORDERED: Orphenadrine 100 MG Tab.ER PO ONE (11:30)
[2021-02-14] MEDS ORDERED: Acetaminophen/HYDROcodone 325-5 MG Tab PO ONE ×2 (11:30→13:19)
[2021-02-14 14:36] VITALS: BP 146/87; PULSE 89
== END 2021-02-14 14:30 | disposition home or self-care (01) ==
LOC: JD.ED 08:36
DX: S39.012A Strain of muscle, fascia and tendon of lower back, initial encounter (principal); M62.830 Muscle spasm of back; I10 Essential (primary) hypertension; E78.00 Pure hypercholesterolemia, unspecified; Z20.822 Contact with and (suspected) exposure to COVID-19; Z88.5 Allergy status to narcotic agent; Z88.6 Allergy status to analgesic agent; Z79.899 Other long term (current) drug therapy; X50.0XXA Overexertion from strenuous movement or load, initial encounter
CPT/HCPCS: 36415; 71260; 74177; 80053; 84484; 85025; 85610; 85730; 87635; 93005; 96374; 96375; 96376; 99284; A9270; J2405; J3010; Q9967; U0002

== ENCOUNTER → 2022-02-07 | Day surgery (SDC) | payer MEDICARE, OTHER ==
[~2022-02-07] MED LIST: Dexamethasone 4 MG/ML 5 ML MDV IV ONE; HYDROmorphone 0.5 MG/0.5 ML Syringe IV ONE; Lactated Ringers 1,000 ML IV ONE; Lidocaine 1%/Sod Bicarbonate in NS 8.4% 1 ML Syringe IDERM ONE; Midazolam 1 MG/ML 2 ML SDV IV ONE; Neostigmine Methylsulfate 10 MG/10 ML MDV IV ONE; Ondansetron 4 MG/2 ML SDV IV ONE; Propofol 200 MG/20 ML SDV IV ONE; Rocuronium 50 MG/5 ML Vial IV ONE; fentaNYL 250 MCG/5 ML SDV IM ONE
[2022-03-15 16:42] LABS: ESTIMATED GFR 82 mL/min (>60)
== END ==
LOC: JD.SDS 01-31 12:00
PROVIDERS: ATTEND Surgery
DX: K59.09 Other constipation (principal); R10.9 Unspecified abdominal pain; F41.9 Anxiety disorder, unspecified; I10 Essential (primary) hypertension; E78.00 Pure hypercholesterolemia, unspecified; F32.A Depression, unspecified; Z90.49 Acquired absence of other specified parts of digestive tract; Z79.899 Other long term (current) drug therapy; Z88.8 Allergy status to other drugs, medicaments and biological substances; Z88.6 Allergy status to analgesic agent
CPT/HCPCS: 36415; 49321; 80048; 85025; J1100; J1170; J2250; J2405; J2704; J2710; J3010; J7120; 00840

== ENCOUNTER 2023-05-21 07:46 | Emergency (ER) | payer MEDICARE, OTHER ==
[2023-05-21] MEDS ORDERED: Sodium Chloride 0.9% 10 ML Syringe FLUSH PRN (08:12)
[2023-05-21] MEDS ORDERED: diphenhydrAMINE 50 MG/ML SDV IVPUSH ONE (08:12)
[2023-05-21] MEDS ORDERED: Metoclopramide 10 MG/2 ML SDV IVPUSH ONE (08:13)
[2023-05-21] MEDS ORDERED: HYDROmorphone 0.5 MG/0.5 ML Syringe IVPUSH ONE ×2 (08:13→09:49)
[2023-05-21 11:36] VITALS: BP 128/91; PULSE 91
== END 2023-05-21 11:30 | disposition home or self-care (01) ==
LOC: JD.ED 07:46
DX: M54.12 Radiculopathy, cervical region (principal); R51.9 Headache, unspecified; I10 Essential (primary) hypertension; E78.00 Pure hypercholesterolemia, unspecified; Z86.16 Personal history of COVID-19; Z88.6 Allergy status to analgesic agent; Z88.5 Allergy status to narcotic agent; Z90.49 Acquired absence of other specified parts of digestive tract; Z90.710 Acquired absence of both cervix and uterus; Z79.899 Other long term (current) drug therapy
CPT/HCPCS: 70450; 70450-26; 96374; 96375; 96376; 99283; 99284-25; J1170; J1200; J2765; J3360; J3490